=== PATIENT | male | born 1960 | race Two or more races ===

== ENCOUNTER 2018-09-27 19:42 | Emergency (ER) | payer MEDICAID ==
[~2018-09-27] VITALS: Ht 172.7 cm; Wt 78.0 kg
[2018-09-27 19:56] VITALS: BP 142/78
[2018-09-28] MEDS ORDERED: MULT-1234 PO (22:18)
== END 2018-09-28 00:02 | disposition left against medical advice (07) ==
LOC: ER 19:42
DX: R06.02 Shortness of breath (principal); Z53.21 Procedure and treatment not carried out due to patient leaving prior to being seen by health care provider

== ENCOUNTER 2018-09-28 09:22 | Inpatient (IN) | payer MEDICAID ==
[~2018-09-28] VITALS: Ht 177.8 cm; Wt 79.4 kg
[2018-09-28] MEDS ORDERED: METHYLPREDNISOLONE SOD SUCC 125 MG/2 ML VIAL IV STA (09:48)
[2018-09-28] MEDS ORDERED: IPRATROPIUM BROMIDE (0.02%) 0.5MG/2.5ML NEB HHN STA (09:48)
[2018-09-28] MEDS ORDERED: ALBUTEROL (0.083%) 2.5MG/3ML NEB HHN STA (09:48)
[2018-09-28 10:10] LABS: BASOPHILS % 0.5 % (0.0-2.0); EOSINOPHILS % 0.3 % (0.0-5.0); HEMATOCRIT. 37.8 % (42.0-52.0); HEMOGLOBIN. 12.3 g/dL (14.0-18.0); LYMPHOCYTES % 16.5 % (20.0-50.0); MEAN CORPUSCULAR HEMOGLOBIN 28.8 pg (28.0-32.0); MEAN CORPUSCULAR VOLUME 88.6 fL (80.0-94.0); MEAN PLATELET VOLUME 9.4 fl (7.4-10.4); MONOCYTES % 11.6 % (2.0-8.0); NEUTROPHILS % 71.1 % (40.0-76.0); PLATELET 403 x1000/uL (130-400); RED BLOOD CELL COUNT 4.27 mill/uL (4.7-6.1); RED CELL DISTRIBUTION WIDTH 16.3 % (11.6-14.6)
[2018-09-28 10:14] LABS: CHLORIDE 98 mEq/L (98-107)
[2018-09-28] MEDS ORDERED: AMLODIPINE 5MG TABLET PO ONE (10:30)
[2018-09-28] MEDS ORDERED: NITROGLYCERIN OINT 1GM/INCH UDPKT TD ONE (10:30)
[2018-09-28] MEDS ORDERED: FUROSEMIDE 40MG/4ML VIAL IV ONE (10:30)
[2018-09-28] MEDS ORDERED: ASPIRIN 81MG TABLET PO ONE (10:30)
[2018-09-28] MEDS ORDERED: NITROGLYCERIN 0.1MG/HR PATCH TOP ONE (11:45)
[2018-09-28] MEDS ORDERED: MAGNESIUM/ALUMINUM HYDROXIDE/SIMETHICONE 30ML UDC PO PRN (13:30)
[2018-09-28] MEDS ORDERED: ONDANSETRON HCL 4MG/2ML INJ IV PRN (13:30)
[2018-09-28] MEDS ORDERED: CLONIDINE 0.1MG TABLET PO PRN (13:30)
[2018-09-28] MEDS ORDERED: ACETAMINOPHEN 325MG TABLET PO PRN (13:30)
[2018-09-28] MEDS ORDERED: HYDRALAZINE 20MG/ML VIAL IV ONE (13:30)
[2018-09-28] MEDS ORDERED: DOCUSATE SODIUM 100MG CAPSULE PO PRN (13:30)
[2018-09-28] MEDS ORDERED: GUAIFENESIN 200MG/10ML SUGAR FREE UDC PO PRN (13:30)
[2018-09-28] MEDS ORDERED: HYDROCODONE/ACETAMINOPHEN 5/325MG TABLET PO PRN (13:30)
[2018-09-28] MEDS: NIFEDIPINE XL 60MG TAB PO SCH (14:30)
[2018-09-28 14:31] LABS: BG BASE EXCESS 0.3 mmol/L (-2.0-2.0); BG CARBOXYHEMOGLOBIN 1.2 % (0.5-1.5); BG DEOXYHEMOGLOBIN 2.2 % (0.0-5.0); BG FRACTION INSPIRED OXYGEN 28; BG HCO3 ACT 24.9 mmol/L (22.0-26.0); BG METHEMOGLOBIN 0.3 % (0.0-1.5); BG OXYGEN SATURATION 97.8 % (92.0-98.5); BG OXYHEMOGLOBIN 96.3 % (94.0-97.0); BG PCO2 40.1 mmHg (35.0-45.0); BG PH 7.411 (7.350-7.450); BG PO2 105.3 mmHg (75.0-100.0); BG SAMPLE SITE RIGHT BRACHIAL; BG TOTAL HEMOGLOBIN 13.1 g/dL (12.0-18.0); BG VENT MODE NASAL CANNULA
[2018-09-28] MEDS: PANTOPRAZOLE 40MG DR TABLET PO SCH (14:36)
[2018-09-28] MEDS: ENOXAPARIN 40MG/0.4ML SYR SUBCUT SCH (14:40)
[2018-09-28 15:59] LABS: CREATINE KINASE MB FRACTION 3.1 ng/mL (0.5-3.6)
[2018-09-28 20:30] VITALS: BP 154/104
[2018-09-28] MEDS ORDERED: DEXTROSE 50% WATER 50ML SYRINGE IV PRN (20:45)
[2018-09-28 21:14] VITALS: BP 154/104
[2018-09-28] MEDS ORDERED: HYDRALAZINE 20MG/ML VIAL IV PRN (21:32)
[2018-09-28] MEDS: METHYLPREDNISOLONE SOD SUCC 40 MG/ML VIAL IV SCH (21:46)
[2018-09-28] MEDS: FUROSEMIDE 40MG/4ML VIAL IV SCH (21:46)
[2018-09-28] MEDS: BLOOD SUGAR DIAGNOSTIC STRIP TEST SCH (21:47)
[2018-09-28] MEDS: INSULIN LISPRO 100 UNITS/ML SUBCUT SCH (21:50)
[2018-09-28] MEDS ORDERED: MULT-1234 PO (22:18)
[2018-09-28 23:05] LABS: CLARITY URINE CLEAR (CLEAR); COLOR URINE YELLOW (YELLOW); KETONES URINE NEGATIVE (NEGATIVE); LEUKOCYTE ESTERASE URINE NEGATIVE (NEGATIVE); NITRITE URINE NEGATIVE (NEGATIVE); OCCULT BLOOD URINE NEGATIVE (NEGATIVE); PH URINE 5.5 (4.5-8.0); PROTEIN URINE 1+ (NEGATIVE); SPECIFIC GRAVITY URINE 1.009 (1.005-1.030); UROBILINOGEN URINE 0.2 E.U./dL (0.2-1.0)
[2018-09-28 23:15] LABS: *AMPHETAMINES SCREEN URINE NEGATIVE (NEGATIVE); *BARBITURATES SCREEN URINE NEGATIVE (NEGATIVE); *BENZODIAZEPINES SCREEN URINE NEGATIVE (NEGATIVE); *COCAINE SCREEN URINE NEGATIVE (NEGATIVE); CANNABINOID URINE SCREEN NEGATIVE (NEGATIVE); METHADONE URINE SCREEN NEGATIVE (NEGATIVE); OPIATES URINE SCREEN NEGATIVE (NEGATIVE); PHENCYCLIDINE URINE SCREEN NEGATIVE (NEGATIVE)
[2018-09-28] MEDS: BUDESONIDE 0.5MG/2ML NEB HHN SCH (23:50)
[2018-09-28] MEDS: IPRATROPIUM/ALBUTEROL 0.5-3(2.5)MG/3ML NEB INH PRN (23:51)
[2018-09-29] VITALS: BP 134/85
[2018-09-29 04:00] VITALS: BP 125/77
[2018-09-29] MEDS: PANTOPRAZOLE 40MG DR TABLET PO SCH (06:20)
[2018-09-29] MEDS: METHYLPREDNISOLONE SOD SUCC 40 MG/ML VIAL IV SCH ×3 (06:20→21:15)
[2018-09-29] MEDS: BLOOD SUGAR DIAGNOSTIC STRIP TEST SCH ×4 (06:20→21:16)
[2018-09-29] MEDS: INSULIN LISPRO 100 UNITS/ML SUBCUT SCH ×4 (06:22→21:00)
[2018-09-29 07:06] LABS: BASOPHILS % 0.1 % (0.0-2.0); HEMATOCRIT. 35.4 % (42.0-52.0); HEMOGLOBIN. 11.6 g/dL (14.0-18.0); LYMPHOCYTES % 7.6 % (20.0-50.0); MEAN CORPUSCULAR VOLUME 88.8 fL (80.0-94.0); MEAN PLATELET VOLUME 9.4 fl (7.4-10.4); NEUTROPHILS % 80.3 % (40.0-76.0); PLATELET 373 x1000/uL (130-400); RED BLOOD CELL COUNT 3.98 mill/uL (4.7-6.1); RED CELL DISTRIBUTION WIDTH 16.3 % (11.6-14.6)
[2018-09-29 08:00] VITALS: BP 156/112
[2018-09-29] MEDS: FUROSEMIDE 40MG/4ML VIAL IV SCH ×2 (09:13→21:15)
[2018-09-29] MEDS: NIFEDIPINE XL 60MG TAB PO SCH (09:14)
[2018-09-29] MEDS: ENOXAPARIN 40MG/0.4ML SYR SUBCUT SCH (09:15)
[2018-09-29] MEDS: BUDESONIDE 0.5MG/2ML NEB HHN SCH ×2 (10:14→20:19)
[2018-09-29] MEDS: POTASSIUM CHLORIDE 20MEQ TABLET SR PO SCH (11:20)
[2018-09-29 12:00] VITALS: BP 143/100
[2018-09-29] MEDS: CLONIDINE 0.2MG TABLET PO SCH ×2 (14:32→21:17)
[2018-09-29 16:00] VITALS: BP 131/91
[2018-09-29 20:00] VITALS: BP 135/94
[2018-09-29] MEDS: CARVEDILOL 6.25 MG TABLET PO SCH (21:16)
[2018-09-30] VITALS: BP 129/88
[2018-09-30 04:00] VITALS: BP 130/92
[2018-09-30] MEDS: INSULIN LISPRO 100 UNITS/ML SUBCUT SCH ×4 (05:54→21:00)
[2018-09-30] MEDS: BLOOD SUGAR DIAGNOSTIC STRIP TEST SCH ×4 (05:54→21:00)
[2018-09-30] MEDS: PANTOPRAZOLE 40MG DR TABLET PO SCH (05:54)
[2018-09-30] MEDS: METHYLPREDNISOLONE SOD SUCC 40 MG/ML VIAL IV SCH ×2 (05:54→13:20)
[2018-09-30] MEDS: CLONIDINE 0.2MG TABLET PO SCH ×3 (05:54→23:49)
[2018-09-30 06:42] LABS: HEMATOCRIT. 32.9 % (42.0-52.0); HEMOGLOBIN. 10.7 g/dL (14.0-18.0); MEAN CORPUSCULAR HEMOGLOBIN 28.9 pg (28.0-32.0); MEAN CORPUSCULAR VOLUME 88.8 fL (80.0-94.0); MEAN PLATELET VOLUME 9.3 fl (7.4-10.4); PLATELET 384 x1000/uL (130-400); RED BLOOD CELL COUNT 3.71 mill/uL (4.7-6.1)
[2018-09-30 08:00] VITALS: BP 135/85
[2018-09-30] MEDS: BUDESONIDE 0.5MG/2ML NEB HHN SCH (08:36)
[2018-09-30] MEDS: IPRATROPIUM/ALBUTEROL 0.5-3(2.5)MG/3ML NEB INH PRN (08:36)
[2018-09-30] MEDS: FUROSEMIDE 40MG/4ML VIAL IV SCH ×2 (09:28→22:09)
[2018-09-30] MEDS: ENOXAPARIN 40MG/0.4ML SYR SUBCUT SCH (09:28)
[2018-09-30] MEDS: POTASSIUM CHLORIDE 20MEQ TABLET SR PO SCH (09:29)
[2018-09-30] MEDS: NIFEDIPINE XL 60MG TAB PO SCH (09:29)
[2018-09-30] MEDS: CARVEDILOL 6.25 MG TABLET PO SCH ×2 (09:30→22:09)
[2018-09-30 10:18] LABS: PLATELET ESTIMATE NORMAL
[2018-09-30 12:00] VITALS: BP 128/64
[2018-09-30] MEDS: LISINOPRIL 5MG TABLET PO SCH (14:11)
[2018-09-30 16:00] VITALS: BP 120/85
[2018-09-30 20:00] VITALS: BP 113/79
[2018-09-30] MEDS ORDERED: BUDESONIDE 0.5MG/2ML NEB HHN SCH (21:00)
[2018-10-01] VITALS: BP 121/87
[2018-10-01 04:00] VITALS: BP 111/73
[2018-10-01] MEDS: PANTOPRAZOLE 40MG DR TABLET PO SCH (07:02)
[2018-10-01] MEDS: INSULIN LISPRO 100 UNITS/ML SUBCUT SCH ×2 (07:03→12:15)
[2018-10-01] MEDS: BLOOD SUGAR DIAGNOSTIC STRIP TEST SCH ×2 (07:03→11:45)
[2018-10-01] MEDS: CLONIDINE 0.2MG TABLET PO SCH ×2 (07:03→14:00)
[2018-10-01] MEDS: IPRATROPIUM/ALBUTEROL 0.5-3(2.5)MG/3ML NEB INH PRN (07:37)
[2018-10-01 08:00] VITALS: BP 122/86
[2018-10-01] MEDS ORDERED: METHYLPREDNISOLONE SOD SUCC 40 MG/ML VIAL IV SCH (09:00)
[2018-10-01] MEDS: ENOXAPARIN 40MG/0.4ML SYR SUBCUT SCH ×2 (09:00→09:33)
[2018-10-01] MEDS: POTASSIUM CHLORIDE 20MEQ TABLET SR PO SCH (09:31)
[2018-10-01] MEDS: CARVEDILOL 6.25 MG TABLET PO SCH (09:31)
[2018-10-01] MEDS: LISINOPRIL 5MG TABLET PO SCH (09:32)
[2018-10-01] MEDS: NIFEDIPINE XL 60MG TAB PO SCH (09:32)
[2018-10-01] MEDS: FUROSEMIDE 40MG/4ML VIAL IV SCH (10:20)
[2018-10-01 10:37] LABS: BASOPHILS % 0.2 % (0.0-2.0); HEMATOCRIT. 35.4 % (42.0-52.0); HEMOGLOBIN. 11.5 g/dL (14.0-18.0); LYMPHOCYTES % 12.4 % (20.0-50.0); MEAN CORPUSCULAR HEMOGLOBIN 28.9 pg (28.0-32.0); MEAN CORPUSCULAR VOLUME 88.9 fL (80.0-94.0); MEAN PLATELET VOLUME 9.3 fl (7.4-10.4); MONOCYTES % 12.5 % (2.0-8.0); NEUTROPHILS % 74.9 % (40.0-76.0); PLATELET 345 x1000/uL (130-400); RED BLOOD CELL COUNT 3.98 mill/uL (4.7-6.1)
[2018-10-01 12:00] VITALS: BP 133/94
[2018-10-01 13:35] VITALS: BP 133/94
== END 2018-10-01 15:55 | disposition home or self-care (01) | DRG 133 ==
LOC: ER 10:05 → 5WST 10:57 → EDBEDREQTM 11:03 → EDBEDREQ 11:03 → EDBEDREQSVC 11:03 → ENRESERV 18:50
PROVIDERS: ADMIT Internal Medicine; ATTEND Internal Medicine
DX: J96.00 Acute respiratory failure, unspecified whether with hypoxia or hypercapnia (principal); I50.43 Acute on chronic combined systolic (congestive) and diastolic (congestive) heart failure; N17.9 Acute kidney failure, unspecified; I27.20 Pulmonary hypertension, unspecified; E87.1 Hypo-osmolality and hyponatremia; E44.1 Mild protein-calorie malnutrition; I42.9 Cardiomyopathy, unspecified; I11.0 Hypertensive heart disease with heart failure; J44.9 Chronic obstructive pulmonary disease, unspecified; D64.9 Anemia, unspecified; E78.5 Hyperlipidemia, unspecified; R73.9 Hyperglycemia, unspecified; Z87.891 Personal history of nicotine dependence; Z68.25 Body mass index [BMI] 25.0-25.9, adult
CPT/HCPCS: 36415; 36600; 71045; 80048; 80061; 80305; 82375; 82550; 82553; 82805; 82962; 83036; 83735; 83880; 84443; 84484; 87070; 93005; 93306; 93970; 94618; 94640; 96374; 96375; 97162; 99291; J0360; J1650; J1815; J1940; J2920; J2930; J7611; J7620; J7626

== ENCOUNTER 2019-06-01 12:27 | Inpatient (IN) | payer MEDICAID ==
[~2019-06-01] VITALS: Ht 177.8 cm; Wt 94.1 kg
[~2019-06-01 12:27] MED LIST: MULT-1234 PO
[2019-06-01] MEDS ORDERED: ALBUTEROL (0.083%) 2.5MG/3ML NEB HHN STA (14:25)
[2019-06-01 15:03] LABS: CHLORIDE 91 mEq/L (98-107)
[2019-06-01 15:05] LABS: ETHANOL BLOOD < 10 mg/dL
[2019-06-01 15:13] LABS: BASOPHILS % 0.2 % (0.0-2.0); HEMATOCRIT. 36.9 % (42.0-52.0); HEMOGLOBIN. 12.2 g/dL (14.0-18.0); LYMPHOCYTES % 11.4 % (20.0-50.0); MEAN CORPUSCULAR HEMOGLOBIN 29.5 pg (28.0-32.0); MEAN CORPUSCULAR VOLUME 89.4 fL (80.0-94.0); MEAN PLATELET VOLUME 9.6 fl (7.4-10.4); MONOCYTES % 13.1 % (2.0-8.0); NEUTROPHILS % 75.3 % (40.0-76.0); PLATELET 321 x1000/uL (130-400); RED BLOOD CELL COUNT 4.12 mill/uL (4.7-6.1); RED CELL DISTRIBUTION WIDTH 17.9 % (11.6-14.6)
[2019-06-01] MEDS ORDERED: ASPIRIN 81MG TABLET PO ONE (15:45)
[2019-06-01] MEDS ORDERED: NITROGLYCERIN 0.4MG TABLET SL SL PRN (15:45)
[2019-06-01] MEDS ORDERED: FUROSEMIDE 40MG/4ML VIAL IV ONE (15:45)
[2019-06-01] MEDS ORDERED: GUAIFENESIN 200MG/10ML SUGAR FREE UDC PO PRN (19:00)
[2019-06-01] MEDS ORDERED: LORAZEPAM 0.5MG TABLET PO PRN (19:00)
[2019-06-01] MEDS ORDERED: ONDANSETRON HCL 4MG/2ML INJ IV PRN (19:00)
[2019-06-01] MEDS ORDERED: DOCUSATE SODIUM 100MG CAPSULE PO PRN (19:00)
[2019-06-01] MEDS ORDERED: IPRATROPIUM/ALBUTEROL 0.5-3(2.5)MG/3ML NEB HHN PRN (19:00)
[2019-06-01] MEDS ORDERED: HYDROCODONE/ACETAMINOPHEN 5/325MG TABLET PO PRN (19:00)
[2019-06-01] MEDS ORDERED: ACETAMINOPHEN 325MG TABLET PO PRN (19:00)
[2019-06-01] MEDS: CLONIDINE 0.1MG TABLET PO PRN (20:15)
[2019-06-01 20:25] LABS: HEPATITIS B SURFACE ANTIGEN NEGATIVE
[2019-06-01 20:55] LABS: HEPATITIS A AB IGM NEGATIVE (NEGATIVE)
[2019-06-01] MEDS ORDERED: HYDRALAZINE 20MG/ML VIAL IV PRN (21:00)
[2019-06-01] MEDS: HYDRALAZINE 20MG/ML VIAL IV PRN (23:12)
[2019-06-01 23:27] LABS: BG BASE EXCESS -4.7 mmol/L (-2.0-2.0); BG CARBOXYHEMOGLOBIN 1.1 % (0.5-1.5); BG DEOXYHEMOGLOBIN 7.1 % (0.0-5.0); BG FRACTION INSPIRED OXYGEN 32; BG HCO3 ACT 19.9 mmol/L (22.0-26.0); BG METHEMOGLOBIN 0.3 % (0.0-1.5); BG OXYGEN SATURATION 92.8 % (92.0-98.5); BG OXYHEMOGLOBIN 91.5 % (94.0-97.0); BG PCO2 35.3 mmHg (35.0-45.0); BG PH 7.368 (7.350-7.450); BG PO2 74.7 mmHg (75.0-100.0); BG SAMPLE SITE RIGHT RADIAL; BG TOTAL HEMOGLOBIN 12.6 g/dL (12.0-18.0); BG VENT MODE NASAL CANNULA
[2019-06-02] VITALS (9 sets, daily range): BP systolic 135–187; BP diastolic 86–133
[2019-06-02] MEDS: CLONIDINE 0.1MG TABLET PO PRN ×3 (05:58→22:58)
[2019-06-02] MEDS: HYDRALAZINE 20MG/ML VIAL IV PRN ×2 (07:20→18:48)
[2019-06-02] MEDS: FUROSEMIDE 40MG/4ML VIAL IV SCH ×2 (09:12→18:47)
[2019-06-02] MEDS: AMLODIPINE 5MG TABLET PO SCH ×3 (09:30→10:18)
[2019-06-02 10:26] LABS: HEMATOCRIT. 36.5 % (42.0-52.0); HEMOGLOBIN. 11.9 g/dL (14.0-18.0); MEAN CORPUSCULAR HEMOGLOBIN 29.3 pg (28.0-32.0); MEAN CORPUSCULAR VOLUME 89.6 fL (80.0-94.0); MEAN PLATELET VOLUME 9.3 fl (7.4-10.4); PLATELET 294 x1000/uL (130-400); RED BLOOD CELL COUNT 4.07 mill/uL (4.7-6.1); RED CELL DISTRIBUTION WIDTH 17.5 % (11.6-14.6)
[2019-06-02 12:28] LABS: NUCLEATED RED BLOOD CELLS 3 /100 WBC
[2019-06-02 12:29] LABS: PLATELET ESTIMATE NORMAL
[2019-06-02] MEDS ORDERED: PNEUMOCOCCAL 23-VAL P-SAC VAC 0.5 ML IM ONE (16:00)
[2019-06-02] MEDS ORDERED: INFLUENZA VIRUS VACCINE(AFLURIA) 0.5ML SYR IM ONE (16:00)
[2019-06-02] MEDS ORDERED: GUAIFENESIN 200MG/10ML SUGAR FREE UDC PO PRN (18:15)
[2019-06-02] MEDS ORDERED: AZITHROMYCIN 500 MG in DEXT 5% WATER 250 ML IV SCH (21:00)
[2019-06-02 21:13] LABS: FOLIC ACID (FOLATE) SERUM > 20.00 ng/mL (>5.38); VITAMIN B12 SERUM > 2000.0 pg/mL (211-911)
[2019-06-02 21:46] LABS: FERRITIN 125 ng/mL (22-322)
[2019-06-02] MEDS: METHYLPREDNISOLONE SOD SUCC 125 MG/2 ML VIAL IV SCH (22:34)
[2019-06-03] VITALS (13 sets, daily range): BP systolic 139–190; BP diastolic 89–115
[2019-06-03] MEDS: HYDRALAZINE 20MG/ML VIAL IV PRN ×2 (01:28→18:29)
[2019-06-03 02:31] LABS: CREATINE KINASE MB FRACTION 4.4 ng/mL (0.5-3.6)
[2019-06-03] MEDS: AZITHROMYCIN 500 MG in DEXT 5% WATER 250 ML IV SCH (02:40)
[2019-06-03] MEDS: METHYLPREDNISOLONE SOD SUCC 125 MG/2 ML VIAL IV SCH ×3 (06:15→21:22)
[2019-06-03 07:34] LABS: HEMATOCRIT. 32.9 % (42.0-52.0); HEMOGLOBIN. 10.7 g/dL (14.0-18.0); MEAN CORPUSCULAR HEMOGLOBIN 29.3 pg (28.0-32.0); MEAN CORPUSCULAR VOLUME 89.8 fL (80.0-94.0); MEAN PLATELET VOLUME 9.2 fl (7.4-10.4); PLATELET 304 x1000/uL (130-400); RED BLOOD CELL COUNT 3.67 mill/uL (4.7-6.1); RED CELL DISTRIBUTION WIDTH 17.7 % (11.6-14.6)
[2019-06-03 08:07] LABS: HIV SCREEN 4G Non Reactive (Non Reactive)
[2019-06-03] MEDS: AMLODIPINE 5MG TABLET PO SCH (08:36)
[2019-06-03] MEDS: FUROSEMIDE 40MG/4ML VIAL IV SCH (08:36)
[2019-06-03] MEDS: CLONIDINE 0.1MG TABLET PO PRN ×2 (10:31→14:31)
[2019-06-03 13:54] LABS: NUCLEATED RED BLOOD CELLS 3 /100 WBC
[2019-06-03 13:55] LABS: PLATELET ESTIMATE NORMAL
[2019-06-03] MEDS ORDERED: BENZONATATE 100MG CAPSULE PO PRN (14:45)
[2019-06-03] MEDS ORDERED: NIFEDIPINE XL 30MG TAB PO SCH (15:00)
[2019-06-03] MEDS: FERROUS SULFATE 325MG TABLET PO SCH (17:49)
[2019-06-03] MEDS: FUROSEMIDE 40MG/4ML VIAL IVP SCH (17:49)
[2019-06-03] MEDS: POTASSIUM CHLORIDE 20MEQ TABLET SR PO SCH (17:49)
[2019-06-03] MEDS: IPRATROPIUM/ALBUTEROL 0.5-3(2.5)MG/3ML NEB HHN SCH (21:10)
[2019-06-03] MEDS: LOSARTAN POTASSIUM 25 MG TABLET PO SCH (21:21)
[2019-06-03] MEDS: NIFEDIPINE XL 30MG TAB PO SCH (22:47)
[2019-06-04] VITALS: BP 138/89
[2019-06-04] MEDS: IPRATROPIUM/ALBUTEROL 0.5-3(2.5)MG/3ML NEB HHN SCH ×3 (00:46→08:34)
[2019-06-04 02:00] VITALS: BP 133/80
[2019-06-04] MEDS: AZITHROMYCIN 500 MG in DEXT 5% WATER 250 ML IV SCH (02:53)
[2019-06-04 04:00] VITALS: BP 109/70
[2019-06-04 06:00] VITALS: BP 126/77
[2019-06-04] MEDS: FUROSEMIDE 40MG/4ML VIAL IVP SCH (06:36)
[2019-06-04] MEDS: METHYLPREDNISOLONE SOD SUCC 125 MG/2 ML VIAL IV SCH (06:37)
[2019-06-04 07:12] LABS: CREATINE KINASE MB FRACTION 2.2 ng/mL (0.5-3.6)
[2019-06-04 08:00] VITALS: BP 133/84
[2019-06-04] MEDS: FERROUS SULFATE 325MG TABLET PO SCH (08:49)
[2019-06-04] MEDS: POTASSIUM CHLORIDE 20MEQ TABLET SR PO SCH (08:50)
[2019-06-04] MEDS: LOSARTAN POTASSIUM 25 MG TABLET PO SCH (08:50)
[2019-06-04] MEDS: NIFEDIPINE XL 30MG TAB PO SCH (08:52)
[2019-06-04] MEDS ORDERED: FUROSEMIDE 40MG TABLET PO SCH (09:00)
[2019-06-04 09:45] VITALS: BP 159/71
== END 2019-06-04 10:00 | disposition left against medical advice (07) | DRG 194 ==
LOC: ER 12:42 → EDBEDREQ 16:11 → CANRESERV 20:16 → ENRESERV 20:16 → EDBEDREQSVC 20:27 → EDBEDREQTM 20:27 → 5EST 20:37 → ENRESERV 06-02 07:36
PROVIDERS: ADMIT Internal Medicine; ATTEND Internal Medicine
DX: I13.0 Hypertensive heart and chronic kidney disease with heart failure and stage 1 through stage 4 chronic kidney disease, or unspecified chronic kidney disease (principal); J96.01 Acute respiratory failure with hypoxia; N17.9 Acute kidney failure, unspecified; E46 Unspecified protein-calorie malnutrition; N18.3 Chronic kidney disease, stage 3 (moderate); E87.1 Hypo-osmolality and hyponatremia; E11.22 Type 2 diabetes mellitus with diabetic chronic kidney disease; E11.65 Type 2 diabetes mellitus with hyperglycemia; B17.10 Acute hepatitis C without hepatic coma; I50.43 Acute on chronic combined systolic (congestive) and diastolic (congestive) heart failure; I27.20 Pulmonary hypertension, unspecified; I42.9 Cardiomyopathy, unspecified; J44.1 Chronic obstructive pulmonary disease with (acute) exacerbation; I45.10 Unspecified right bundle-branch block; D72.821 Monocytosis (symptomatic); D64.9 Anemia, unspecified; B18.2 Chronic viral hepatitis C; F10.20 Alcohol dependence, uncomplicated; F17.210 Nicotine dependence, cigarettes, uncomplicated; I42.0 Dilated cardiomyopathy; Z79.899 Other long term (current) drug therapy; Z68.29 Body mass index [BMI] 29.0-29.9, adult
CPT/HCPCS: 36415; 36600; 71045; 76700; 80048; 80053; 80061; 80076; 80320; 82140; 82248; 82375; 82550; 82553; 82607; 82728; 82746; 82805; 82977; 83036; 83540; 83550; 83880; 83930; 83937; 84295; 84443; 84484; 85025; 85379; 86705; 86709; 86803; 87340; 87389; 93005; 94640; 96374; 99285; J0360; J0456; J1940; J2930; J7060; J7611; J7620; G0480

== ENCOUNTER 2019-06-13 10:42 | Inpatient (IN) | payer MEDICAID ==
[2019-06-13] VITALS (25 sets, daily range): BP systolic 151–200; BP diastolic 100–179
[~2019-06-13] VITALS: Ht 208.3 cm; Wt 81.7 kg
[2019-06-13] MEDS ORDERED: NITROGLYCERIN 0.4MG TABLET SL SL PRN (11:15)
[2019-06-13] MEDS ORDERED: FUROSEMIDE 40MG/4ML VIAL IVP ONE (11:15)
[2019-06-13] MEDS ORDERED: NITROGLYCERIN OINT 1GM/INCH UDPKT TD ONE (11:15)
[2019-06-13] MEDS ORDERED: ASPIRIN 81MG TABLET PO ONE (11:15)
[2019-06-13 11:23] LABS: BASOPHILS % 0.7 % (0.0-2.0); CHLORIDE 108 mEq/L (98-107); EOSINOPHILS % 0.7 % (0.0-5.0); HEMATOCRIT. 37.6 % (42.0-52.0); LYMPHOCYTES % 22.3 % (20.0-50.0); MEAN CORPUSCULAR HEMOGLOBIN 28.9 pg (28.0-32.0); MEAN CORPUSCULAR VOLUME 90.3 fL (80.0-94.0); MEAN PLATELET VOLUME 9.2 fl (7.4-10.4); MONOCYTES % 14.7 % (2.0-8.0); NEUTROPHILS % 61.6 % (40.0-76.0); PLATELET 256 x1000/uL (130-400); RED BLOOD CELL COUNT 4.16 mill/uL (4.7-6.1); RED CELL DISTRIBUTION WIDTH 17.8 % (11.6-14.6)
[2019-06-13] MEDS ORDERED: NITROGLYCERIN 50MG PREMIX 250 ML IV ONE (13:00)
[2019-06-13] MEDS ORDERED: HYDRALAZINE HCL 100MG TABLET PO ONE (13:45)
[2019-06-13 14:30] LABS: *AMPHETAMINES SCREEN URINE NEGATIVE (NEGATIVE); *BARBITURATES SCREEN URINE NEGATIVE (NEGATIVE); *BENZODIAZEPINES SCREEN URINE NEGATIVE (NEGATIVE); *COCAINE SCREEN URINE NEGATIVE (NEGATIVE); METHADONE URINE SCREEN NEGATIVE (NEGATIVE)
[2019-06-13] MEDS ORDERED: ENOXAPARIN 40MG/0.4ML SYR SUBCUT SCH (14:30)
[2019-06-13] MEDS ORDERED: GUAIFENESIN 200MG/10ML SUGAR FREE UDC PO PRN (14:30)
[2019-06-13] MEDS ORDERED: ONDANSETRON HCL 4MG/2ML INJ IV PRN (14:30)
[2019-06-13] MEDS ORDERED: DIPHENHYDRAMINE 50MG/ML VIAL IV PRN (14:30)
[2019-06-13] MEDS ORDERED: IPRATROPIUM/ALBUTEROL 0.5-3(2.5)MG/3ML NEB HHN PRN (14:30)
[2019-06-13] MEDS ORDERED: ACETAMINOPHEN 325MG TABLET PO PRN (14:30)
[2019-06-13 14:31] LABS: CANNABINOID URINE SCREEN NEGATIVE (NEGATIVE); OPIATES URINE SCREEN NEGATIVE (NEGATIVE); PHENCYCLIDINE URINE SCREEN NEGATIVE (NEGATIVE)
[2019-06-13 16:42] LABS: PHOSPHORUS 3.7 mg/dL (2.5-4.9)
[2019-06-13] MEDS ORDERED: FUROSEMIDE 40MG/4ML VIAL IVP SCH (17:00)
[2019-06-13] MEDS ORDERED: AMLODIPINE 5MG TABLET PO NR (17:15)
[2019-06-13] MEDS ORDERED: FUROSEMIDE 100MG/10ML VIAL IVP NR (17:15)
[2019-06-13] MEDS ORDERED: LORAZEPAM 2MG/ML CPJ IV PRN (19:00)
[2019-06-13] MEDS: ENOXAPARIN 40MG/0.4ML SYR SUBCUT SCH (19:33)
[2019-06-13] MEDS: CLONIDINE 0.1MG TABLET PO PRN (19:35)
[2019-06-13] MEDS: NITROGLYCERIN 50MG PREMIX 250 ML IV PRN (23:49)
[2019-06-14] VITALS (81 sets, daily range): BP systolic 120–205; BP diastolic 62–132
[2019-06-14] MEDS: NITROGLYCERIN 50MG PREMIX 250 ML IV PRN ×5 (04:12→21:41)
[2019-06-14] MEDS: FUROSEMIDE 100MG/10ML VIAL IVP SCH ×2 (06:33→16:26)
[2019-06-14] MEDS: CLONIDINE 0.1MG TABLET PO SCH ×4 (06:34→23:59)
[2019-06-14 06:38] LABS: BASOPHILS % 1.1 % (0.0-2.0); EOSINOPHILS % 1.5 % (0.0-5.0); HEMATOCRIT. 30.3 % (42.0-52.0); HEMOGLOBIN. 9.9 g/dL (14.0-18.0); LYMPHOCYTES % 18.3 % (20.0-50.0); MEAN CORPUSCULAR HEMOGLOBIN 29.4 pg (28.0-32.0); MEAN CORPUSCULAR VOLUME 89.6 fL (80.0-94.0); MEAN PLATELET VOLUME 9.4 fl (7.4-10.4); MONOCYTES % 13.9 % (2.0-8.0); NEUTROPHILS % 65.2 % (40.0-76.0); PLATELET 227 x1000/uL (130-400); RED BLOOD CELL COUNT 3.38 mill/uL (4.7-6.1); RED CELL DISTRIBUTION WIDTH 17.5 % (11.6-14.6)
[2019-06-14 06:46] LABS: CHLORIDE 107 mEq/L (98-107)
[2019-06-14 06:57] LABS: LDL CHOLESTEROL 70 mg/dL (5-100)
[2019-06-14 06:58] LABS: HDL CHOLESTEROL 30 mg/dL (40-59)
[2019-06-14] MEDS: MAGNESIUM OXIDE 400MG TABLET PO SCH (08:37)
[2019-06-14] MEDS ORDERED: AMLODIPINE 5MG TABLET PO SCH (09:00)
[2019-06-14 09:03] LABS: CREATINE KINASE 59 IU/L (39-308)
[2019-06-14 13:08] LABS: CLARITY URINE CLEAR (CLEAR); COLOR URINE YELLOW (YELLOW); KETONES URINE NEGATIVE (NEGATIVE); LEUKOCYTE ESTERASE URINE NEGATIVE (NEGATIVE); NITRITE URINE NEGATIVE (NEGATIVE); OCCULT BLOOD URINE NEGATIVE (NEGATIVE); PROTEIN URINE NEGATIVE (NEGATIVE); SPECIFIC GRAVITY URINE 1.006 (1.005-1.030)
[2019-06-14] MEDS: AMLODIPINE 5MG TABLET PO SCH (20:07)
[2019-06-14] MEDS: ENOXAPARIN 40MG/0.4ML SYR SUBCUT SCH (20:07)
[2019-06-15] VITALS (60 sets, daily range): BP systolic 58–155; BP diastolic 13–112
[2019-06-15] MEDS: NITROGLYCERIN 50MG PREMIX 250 ML IV PRN (02:47)
[2019-06-15] MEDS: CLONIDINE 0.1MG TABLET PO PRN ×2 (04:21→15:07)
[2019-06-15] MEDS: CLONIDINE 0.1MG TABLET PO SCH ×3 (06:00→17:40)
[2019-06-15] MEDS: AMLODIPINE 5MG TABLET PO SCH ×2 (07:37→20:56)
[2019-06-15] MEDS: NITROGLYCERIN OINT 1GM/INCH UDPKT TD SCH ×3 (07:37→17:40)
[2019-06-15] MEDS: MAGNESIUM OXIDE 400MG TABLET PO SCH (08:37)
[2019-06-15] MEDS: FUROSEMIDE 40MG TABLET PO SCH ×2 (08:37→20:56)
[2019-06-15 09:25] LABS: HEMATOCRIT. 31.7 % (42.0-52.0); HEMOGLOBIN. 10.4 g/dL (14.0-18.0); MEAN CORPUSCULAR HEMOGLOBIN 29.4 pg (28.0-32.0); MEAN CORPUSCULAR VOLUME 89.4 fL (80.0-94.0); MEAN PLATELET VOLUME 9.9 fl (7.4-10.4); PLATELET 244 x1000/uL (130-400); RED BLOOD CELL COUNT 3.54 mill/uL (4.7-6.1); RED CELL DISTRIBUTION WIDTH 17.6 % (11.6-14.6)
[2019-06-15 09:30] LABS: CHLORIDE 105 mEq/L (98-107)
[2019-06-15 11:07] LABS: PLATELET ESTIMATE NORMAL
[2019-06-15] MEDS: POLYETHYLENE GLYCOL 3350 (17GM) 1 DOSE PACK PO SCH (13:08)
[2019-06-15] MEDS: ENOXAPARIN 40MG/0.4ML SYR SUBCUT SCH (20:56)
[2019-06-16] VITALS (13 sets, daily range): BP systolic 127–145; BP diastolic 77–113
[2019-06-16] MEDS: NITROGLYCERIN OINT 1GM/INCH UDPKT TD SCH ×3 (00:04→12:00)
[2019-06-16] MEDS: CLONIDINE 0.1MG TABLET PO SCH ×3 (00:04→12:00)
[2019-06-16 05:49] LABS: BASOPHILS % 1.6 % (0.0-2.0); EOSINOPHILS % 5.1 % (0.0-5.0); LYMPHOCYTES % 26.8 % (20.0-50.0); MEAN CORPUSCULAR VOLUME 89.1 fL (80.0-94.0); MEAN PLATELET VOLUME 9.4 fl (7.4-10.4); MONOCYTES % 13.5 % (2.0-8.0); PLATELET 287 x1000/uL (130-400); RED BLOOD CELL COUNT 3.81 mill/uL (4.7-6.1); RED CELL DISTRIBUTION WIDTH 17.9 % (11.6-14.6)
[2019-06-16] MEDS: FUROSEMIDE 40MG TABLET PO SCH (08:15)
[2019-06-16] MEDS: AMLODIPINE 5MG TABLET PO SCH (08:15)
[2019-06-16] MEDS: MAGNESIUM OXIDE 400MG TABLET PO SCH (08:15)
[2019-06-16] MEDS: POLYETHYLENE GLYCOL 3350 (17GM) 1 DOSE PACK PO SCH (08:16)
[2019-06-16 08:23] LABS: PHOSPHORUS 3.6 mg/dL (2.5-4.9)
[2019-06-16] MEDS ORDERED: POTASSIUM CHLORIDE 20MEQ TABLET SR PO SCH (09:00)
[2019-06-16] MEDS: CLONIDINE 0.1MG TABLET PO PRN (10:21)
== END 2019-06-16 13:15 | disposition left against medical advice (07) | DRG 133 ==
LOC: ER 10:42 → CVICU 13:05 → EDBEDREQ 13:08 → EDBEDREQTM 13:08 → EDBEDREQSVC 13:08 → ENRESERV 17:10 → EDBEDREQSVC 17:15
PROVIDERS: ADMIT Internal Medicine; ATTEND Internal Medicine
DX: J96.00 Acute respiratory failure, unspecified whether with hypoxia or hypercapnia (principal); I50.43 Acute on chronic combined systolic (congestive) and diastolic (congestive) heart failure; N17.9 Acute kidney failure, unspecified; I27.20 Pulmonary hypertension, unspecified; I31.3 Pericardial effusion (noninflammatory); D50.9 Iron deficiency anemia, unspecified; F10.20 Alcohol dependence, uncomplicated; I13.0 Hypertensive heart and chronic kidney disease with heart failure and stage 1 through stage 4 chronic kidney disease, or unspecified chronic kidney disease; I42.0 Dilated cardiomyopathy; B19.20 Unspecified viral hepatitis C without hepatic coma; D63.8 Anemia in other chronic diseases classified elsewhere; I16.1 Hypertensive emergency; E80.6 Other disorders of bilirubin metabolism; I16.9 Hypertensive crisis, unspecified; F17.210 Nicotine dependence, cigarettes, uncomplicated; I45.10 Unspecified right bundle-branch block; J44.9 Chronic obstructive pulmonary disease, unspecified; N18.9 Chronic kidney disease, unspecified; Z59.0 Homelessness; Z79.899 Other long term (current) drug therapy; Z82.49 Family history of ischemic heart disease and other diseases of the circulatory system; Z91.19 Patient's noncompliance with other medical treatment and regimen
CPT/HCPCS: 36415; 71045; 76770; 78580; 80048; 80053; 80061; 80305; 81003; 82550; 83735; 83880; 84100; 84443; 84484; 85025; 85379; 93005; 93306; 93970; 99291; J1650; J1940; J3490

== ENCOUNTER 2019-07-05 16:06 | Inpatient (IN) | payer MEDICAID ==
[~2019-07-05] VITALS: Ht 177.8 cm; Wt 79.8 kg
[2019-07-05] MEDS ORDERED: ASPIRIN 81MG TABLET PO ONE (16:30)
[2019-07-05] MEDS ORDERED: FUROSEMIDE 40MG/4ML VIAL IV ONE (16:30)
[2019-07-05] MEDS ORDERED: NITROGLYCERIN OINT 1GM/INCH UDPKT TD ONE (16:30)
[2019-07-05] MEDS ORDERED: HYDRALAZINE 20MG/ML VIAL IV ONE (16:30)
[2019-07-05 16:40] LABS: BG BASE EXCESS -10.1 mmol/L (-2.0-2.0); BG BILEVEL POS AIRWAY PRESSURE 18/5; BG CARBOXYHEMOGLOBIN 0.1 % (0.5-1.5); BG DEOXYHEMOGLOBIN 0.3 % (0.0-5.0); BG FRACTION INSPIRED OXYGEN 75; BG HCO3 ACT 12.9 mmol/L (22.0-26.0); BG METHEMOGLOBIN 0.2 % (0.0-1.5); BG OXYGEN SATURATION 99.7 % (92.0-98.5); BG OXYHEMOGLOBIN 99.4 % (94.0-97.0); BG PCO2 21.6 mmHg (35.0-45.0); BG PH 7.393 (7.350-7.450); BG SAMPLE SITE RIGHT RADIAL; BG VENT MODE MASK - BIPAP; BG VENT RATE 20 set
[2019-07-05 17:01] LABS: CHLORIDE 99 mEq/L (98-107); HEMATOCRIT. 37.3 % (42.0-52.0); HEMOGLOBIN. 12.3 g/dL (14.0-18.0); MEAN CORPUSCULAR HEMOGLOBIN 28.3 pg (28.0-32.0); MEAN CORPUSCULAR VOLUME 86.2 fL (80.0-94.0); MEAN PLATELET VOLUME 9.9 fl (7.4-10.4); PLATELET 386 x1000/uL (130-400); RED BLOOD CELL COUNT 4.33 mill/uL (4.7-6.1); RED CELL DISTRIBUTION WIDTH 18.3 % (11.6-14.6)
[2019-07-05 17:04] LABS: INR 1.4; PARTIAL THROMBOPLASTIN TIME 25.1 sec (23.4-31.0); PROTHROMBIN TIME 14.2 sec (9.6-11.0)
[2019-07-05] MEDS ORDERED: HYDRALAZINE 20MG/ML VIAL IV PRN (17:45)
[2019-07-05] MEDS: NITROGLYCERIN OINT 1GM/INCH UDPKT TD SCH (18:00)
[2019-07-05] MEDS ORDERED: AMLODIPINE 5MG TABLET PO NR (18:00)
[2019-07-05] MEDS ORDERED: ENOXAPARIN 80MG/0.8ML SYR SUBCUT NR (19:00)
[2019-07-05 19:12] LABS: *AMPHETAMINES SCREEN URINE NEGATIVE (NEGATIVE); *BARBITURATES SCREEN URINE NEGATIVE (NEGATIVE); *BENZODIAZEPINES SCREEN URINE NEGATIVE (NEGATIVE); *COCAINE SCREEN URINE NEGATIVE (NEGATIVE); METHADONE URINE SCREEN NEGATIVE (NEGATIVE); OPIATES URINE SCREEN NEGATIVE (NEGATIVE)
[2019-07-05 19:13] LABS: CANNABINOID URINE SCREEN NEGATIVE (NEGATIVE); PHENCYCLIDINE URINE SCREEN NEGATIVE (NEGATIVE)
[2019-07-05 20:06] LABS: NUCLEATED RED BLOOD CELLS 6 /100 WBC; PLATELET ESTIMATE NORMAL
[2019-07-05] MEDS: CLONIDINE 0.1MG TABLET PO PRN (22:00)
[2019-07-06] MEDS ORDERED: MAGNESIUM/ALUMINUM HYDROXIDE/SIMETHICONE 30ML UDC PO PRN
[2019-07-06] MEDS ORDERED: HYDROCODONE/ACETAMINOPHEN 5/325MG TABLET PO PRN
[2019-07-06] MEDS ORDERED: ACETAMINOPHEN 325MG TABLET PO PRN
[2019-07-06] MEDS ORDERED: DOCUSATE SODIUM 100MG CAPSULE PO PRN
[2019-07-06] MEDS ORDERED: CLONIDINE 0.1MG TABLET PO PRN
[2019-07-06] MEDS ORDERED: NITROGLYCERIN OINT 1GM/INCH UDPKT TD SCH (00:15)
[2019-07-06] MEDS: NITROGLYCERIN OINT 1GM/INCH UDPKT TD SCH ×4 (00:24→18:44)
[2019-07-06 05:15] LABS: HEMATOCRIT. 32.5 % (42.0-52.0); HEMOGLOBIN. 10.6 g/dL (14.0-18.0); MEAN CORPUSCULAR HEMOGLOBIN 28.2 pg (28.0-32.0); MEAN CORPUSCULAR VOLUME 86.5 fL (80.0-94.0); MEAN PLATELET VOLUME 9.3 fl (7.4-10.4); PLATELET 307 x1000/uL (130-400); RED BLOOD CELL COUNT 3.75 mill/uL (4.7-6.1); RED CELL DISTRIBUTION WIDTH 17.8 % (11.6-14.6)
[2019-07-06 05:16] LABS: CHLORIDE 104 mEq/L (98-107)
[2019-07-06] MEDS: CLONIDINE 0.1MG TABLET PO PRN ×2 (05:18→16:52)
[2019-07-06 05:24] LABS: HDL CHOLESTEROL 15 mg/dL (40-59); LDL CHOLESTEROL 94 mg/dL (5-100)
[2019-07-06 05:26] LABS: CREATINE KINASE 52 IU/L (39-308); CREATINE KINASE MB FRACTION 1.8 ng/mL (0.5-3.6)
[2019-07-06 06:02] LABS: NUCLEATED RED BLOOD CELLS 3 /100 WBC; PLATELET ESTIMATE NORMAL
[2019-07-06] MEDS ORDERED: FUROSEMIDE 40MG/4ML VIAL IVP SCH (09:00)
[2019-07-06] MEDS: ASPIRIN 81MG EC TABLET PO SCH (09:10)
[2019-07-06] MEDS: AMLODIPINE 5MG TABLET PO SCH ×2 (09:10→18:25)
[2019-07-06] MEDS ORDERED: ENOXAPARIN 80MG/0.8ML SYR SUBCUT NR (15:30)
[2019-07-06 16:00] VITALS: BP 156/109
[2019-07-06 16:01] VITALS: BP 172/105
[2019-07-06 20:00] VITALS: BP 145/105
[2019-07-06] MEDS: FUROSEMIDE 40MG/4ML VIAL IVP SCH (20:21)
[2019-07-06] MEDS: LOSARTAN POTASSIUM 25 MG TABLET PO SCH (20:34)
[2019-07-06] MEDS: POTASSIUM CHLORIDE 20MEQ TABLET SR PO SCH (20:34)
[2019-07-06] MEDS: HYDRALAZINE HCL 50MG TABLET PO SCH (20:37)
[2019-07-06] MEDS: IPRATROPIUM/ALBUTEROL 0.5-3(2.5)MG/3ML NEB NEB PRN (21:53)
[2019-07-06] MEDS ORDERED: CHLORDIAZEPOXIDE 25MG CAPSULE PO SCH (22:00)
[2019-07-07] VITALS: BP 122/78
[2019-07-07] MEDS: NITROGLYCERIN OINT 1GM/INCH UDPKT TD SCH ×4 (00:13→17:40)
[2019-07-07] MEDS: IPRATROPIUM/ALBUTEROL 0.5-3(2.5)MG/3ML NEB NEB PRN (01:52)
[2019-07-07 04:00] VITALS: BP 126/81
[2019-07-07] MEDS: HYDRALAZINE HCL 50MG TABLET PO SCH ×3 (06:00→21:56)
[2019-07-07] MEDS: FUROSEMIDE 40MG/4ML VIAL IVP SCH ×2 (06:17→17:15)
[2019-07-07 07:34] LABS: CHLORIDE 101 mEq/L (98-107)
[2019-07-07 07:42] LABS: CREATINE KINASE 37 IU/L (39-308)
[2019-07-07 07:45] LABS: CREATINE KINASE MB FRACTION 1.3 ng/mL (0.5-3.6)
[2019-07-07 07:54] LABS: HEMATOCRIT. 29.6 % (42.0-52.0); HEMOGLOBIN. 9.8 g/dL (14.0-18.0); MEAN CORPUSCULAR HEMOGLOBIN 28.3 pg (28.0-32.0); MEAN CORPUSCULAR VOLUME 85.3 fL (80.0-94.0); MEAN PLATELET VOLUME 9.3 fl (7.4-10.4); PLATELET 290 x1000/uL (130-400); RED BLOOD CELL COUNT 3.47 mill/uL (4.7-6.1); RED CELL DISTRIBUTION WIDTH 17.7 % (11.6-14.6)
[2019-07-07 08:00] VITALS: BP 123/76
[2019-07-07] MEDS: AMLODIPINE 5MG TABLET PO SCH ×2 (08:57→17:00)
[2019-07-07] MEDS: LOSARTAN POTASSIUM 25 MG TABLET PO SCH ×2 (08:57→21:56)
[2019-07-07] MEDS: POTASSIUM CHLORIDE 20MEQ TABLET SR PO SCH (08:58)
[2019-07-07] MEDS: ASPIRIN 81MG EC TABLET PO SCH ×2 (08:58→09:00)
[2019-07-07 12:00] VITALS: BP 146/83
[2019-07-07 16:00] VITALS: BP 134/92
[2019-07-07 19:55] LABS: NUCLEATED RED BLOOD CELLS 3 /100 WBC; PLATELET ESTIMATE NORMAL
[2019-07-07 20:00] VITALS: BP 151/99
[2019-07-08] VITALS: BP 145/102
[2019-07-08] MEDS: NITROGLYCERIN OINT 1GM/INCH UDPKT TD SCH ×2 (00:15→05:57)
[2019-07-08 04:00] VITALS: BP 149/82
[2019-07-08] MEDS: HYDRALAZINE HCL 50MG TABLET PO SCH (05:57)
[2019-07-08] MEDS: FUROSEMIDE 40MG/4ML VIAL IVP SCH (06:22)
[2019-07-08 06:43] LABS: CHLORIDE 103 mEq/L (98-107)
[2019-07-08 06:51] LABS: HEMATOCRIT. 32.3 % (42.0-52.0); HEMOGLOBIN. 10.6 g/dL (14.0-18.0); MEAN CORPUSCULAR HEMOGLOBIN 28.1 pg (28.0-32.0); MEAN CORPUSCULAR VOLUME 85.6 fL (80.0-94.0); MEAN PLATELET VOLUME 9.1 fl (7.4-10.4); PLATELET 295 x1000/uL (130-400); RED BLOOD CELL COUNT 3.77 mill/uL (4.7-6.1); RED CELL DISTRIBUTION WIDTH 17.9 % (11.6-14.6)
[2019-07-08 10:21] LABS: NUCLEATED RED BLOOD CELLS 2 /100 WBC; PLATELET ESTIMATE NORMAL
== END 2019-07-08 07:55 | disposition left against medical advice (07) | DRG 133 ==
LOC: ER 16:06 → EDBEDREQTM 21:07 → EDBEDREQ 21:07 → EDBEDREQSVC 07-06 11:58 → ENRESERV 07-06 13:26 → 5WST 07-06 15:09
PROVIDERS: ADMIT Internal Medicine; ATTEND Internal Medicine
PROC: 5A09357 Assistance with Respiratory Ventilation, Less than 24 Consecutive Hours, Continuous Positive Airway Pressure (ICD-10-PCS; principal; 2019-07-05)
DX: J96.00 Acute respiratory failure, unspecified whether with hypoxia or hypercapnia (principal); I50.23 Acute on chronic systolic (congestive) heart failure; I27.20 Pulmonary hypertension, unspecified; R18.8 Other ascites; F10.20 Alcohol dependence, uncomplicated; D50.9 Iron deficiency anemia, unspecified; B19.20 Unspecified viral hepatitis C without hepatic coma; D63.8 Anemia in other chronic diseases classified elsewhere; I13.0 Hypertensive heart and chronic kidney disease with heart failure and stage 1 through stage 4 chronic kidney disease, or unspecified chronic kidney disease; I16.0 Hypertensive urgency; I45.10 Unspecified right bundle-branch block; K80.20 Calculus of gallbladder without cholecystitis without obstruction; E87.6 Hypokalemia; N18.9 Chronic kidney disease, unspecified; Z87.891 Personal history of nicotine dependence; Z79.899 Other long term (current) drug therapy
CPT/HCPCS: 36415; 36600; 71045; 76700; 78580; 80048; 80053; 80061; 80305; 82375; 82550; 82553; 82805; 83735; 83880; 84443; 84484; 85025; 85379; 93005; 93970; 94640; 94660; 96372; 96374; 99291; C1893; J0360; J1650; J1940

== ENCOUNTER 2019-07-17 06:20 | Inpatient (IN) | payer MEDICAID ==
[~2019-07-17] VITALS: Ht 177.8 cm; Wt 81.6 kg
[2019-07-17] MEDS ORDERED: IPRATROPIUM BROMIDE (0.02%) 0.5MG/2.5ML NEB HHN STA (06:35)
[2019-07-17] MEDS ORDERED: PREDNISONE 20MG TABLET PO STA (06:35)
[2019-07-17] MEDS ORDERED: ALBUTEROL (0.083%) 2.5MG/3ML NEB HHN STA (06:35)
[2019-07-17] MEDS ORDERED: FUROSEMIDE 40MG/4ML VIAL IVP ONE (08:00)
[2019-07-17] MEDS ORDERED: ENALAPRIL 2.5MG/2ML VIAL 2ML IV ONE (08:00)
[2019-07-17 08:50] LABS: BG BASE EXCESS -3.4 mmol/L (-2.0-2.0); BG CARBOXYHEMOGLOBIN 0.7 % (0.5-1.5); BG DEOXYHEMOGLOBIN 0.7 % (0.0-5.0); BG FRACTION INSPIRED OXYGEN 45; BG HCO3 ACT 18.1 mmol/L (22.0-26.0); BG METHEMOGLOBIN 0.3 % (0.0-1.5); BG OXYGEN SATURATION 99.3 % (92.0-98.5); BG OXYHEMOGLOBIN 98.3 % (94.0-97.0); BG PCO2 23.6 mmHg (35.0-45.0); BG PH 7.502 (7.350-7.450); BG PO2 183.9 mmHg (75.0-100.0); BG SAMPLE SITE RIGHT BRACHIAL; BG TOTAL HEMOGLOBIN 12.4 g/dL (12.0-18.0)
[2019-07-17 09:38] LABS: BASOPHILS % 1.3 % (0.0-2.0); EOSINOPHILS % 0.6 % (0.0-5.0); HEMATOCRIT. 37.1 % (42.0-52.0); HEMOGLOBIN. 11.9 g/dL (14.0-18.0); LYMPHOCYTES % 31.3 % (20.0-50.0); MEAN CORPUSCULAR VOLUME 84.5 fL (80.0-94.0); MEAN PLATELET VOLUME 9.2 fl (7.4-10.4); MONOCYTES % 11.5 % (2.0-8.0); NEUTROPHILS % 55.3 % (40.0-76.0); PLATELET 230 x1000/uL (130-400); RED BLOOD CELL COUNT 4.39 mill/uL (4.7-6.1); RED CELL DISTRIBUTION WIDTH 18.1 % (11.6-14.6)
[2019-07-17 09:49] LABS: CHLORIDE 104 mEq/L (98-107)
[2019-07-17] MEDS ORDERED: ONDANSETRON HCL 4MG/2ML INJ IV PRN (10:45)
[2019-07-17] MEDS ORDERED: ACETAMINOPHEN 325MG TABLET PO PRN (10:45)
[2019-07-17] MEDS ORDERED: IPRATROPIUM/ALBUTEROL 0.5-3(2.5)MG/3ML NEB HHN PRN (10:45)
[2019-07-17] MEDS: ENOXAPARIN 40MG/0.4ML SYR SUBCUT SCH (11:41)
[2019-07-17 12:10] LABS: PHOSPHORUS 3.3 mg/dL (2.5-4.9)
[2019-07-17 16:00] VITALS: BP 170/113
[2019-07-17] MEDS ORDERED: PNEUMOCOCCAL 23-VAL P-SAC VAC 0.5 ML IM ONE (18:30)
[2019-07-17] MEDS ORDERED: INFLUENZA VIRUS VACCINE(AFLURIA) 0.5ML SYR IM ONE (18:30)
[2019-07-17] MEDS: AMLODIPINE 5MG TABLET PO SCH (18:43)
[2019-07-17] MEDS: FUROSEMIDE 40MG/4ML VIAL IV SCH (18:44)
[2019-07-17 20:00] VITALS: BP 166/119
[2019-07-17] MEDS ORDERED: DEXTROSE 50% WATER 50ML SYRINGE IV PRN (20:15)
[2019-07-17] MEDS: INSULIN LISPRO 100 UNITS/ML SUBCUT SCH (21:00)
[2019-07-17] MEDS: BLOOD SUGAR DIAGNOSTIC STRIP TEST SCH (21:12)
[2019-07-17 22:51] LABS: *AMPHETAMINES SCREEN URINE NEGATIVE (NEGATIVE)
[2019-07-17 22:52] LABS: *BARBITURATES SCREEN URINE NEGATIVE (NEGATIVE); *BENZODIAZEPINES SCREEN URINE NEGATIVE (NEGATIVE); *COCAINE SCREEN URINE NEGATIVE (NEGATIVE); CANNABINOID URINE SCREEN NEGATIVE (NEGATIVE); METHADONE URINE SCREEN NEGATIVE (NEGATIVE); OPIATES URINE SCREEN NEGATIVE (NEGATIVE); PHENCYCLIDINE URINE SCREEN NEGATIVE (NEGATIVE)
[2019-07-18] VITALS: BP 158/106
[2019-07-18] MEDS: AMLODIPINE 5MG TABLET PO SCH ×2 (00:37→09:11)
[2019-07-18 04:00] VITALS: BP 167/107
[2019-07-18] MEDS ORDERED: CLONIDINE 0.1MG TABLET PO PRN (05:45)
[2019-07-18 07:15] LABS: HEMATOCRIT. 35.4 % (42.0-52.0); HEMOGLOBIN. 11.3 g/dL (14.0-18.0); MEAN CORPUSCULAR HEMOGLOBIN 26.9 pg (28.0-32.0); MEAN CORPUSCULAR VOLUME 84.6 fL (80.0-94.0); MEAN PLATELET VOLUME 9.2 fl (7.4-10.4); PLATELET 238 x1000/uL (130-400); RED BLOOD CELL COUNT 4.19 mill/uL (4.7-6.1); RED CELL DISTRIBUTION WIDTH 18.2 % (11.6-14.6)
[2019-07-18 07:28] LABS: CHLORIDE 107 mEq/L (98-107)
[2019-07-18 08:00] VITALS: BP 140/92
[2019-07-18] MEDS: BLOOD SUGAR DIAGNOSTIC STRIP TEST SCH ×2 (08:10→12:58)
[2019-07-18] MEDS: INSULIN LISPRO 100 UNITS/ML SUBCUT SCH ×2 (08:10→12:58)
[2019-07-18] MEDS ORDERED: ASPIRIN 81MG EC TABLET PO SCH (09:00)
[2019-07-18] MEDS: FUROSEMIDE 40MG/4ML VIAL IV SCH ×2 (09:11→09:36)
[2019-07-18] MEDS: ENOXAPARIN 40MG/0.4ML SYR SUBCUT SCH (09:11)
[2019-07-18 12:00] VITALS: BP 134/86
[2019-07-18] MEDS ORDERED: CLONIDINE 0.1MG TABLET PO SCH (14:00)
[2019-07-18 14:15] LABS: NUCLEATED RED BLOOD CELLS 1 /100 WBC; PLATELET ESTIMATE NORMAL
== END 2019-07-18 15:20 | disposition left against medical advice (07) | DRG 133 ==
LOC: ER 06:20 → 7WST 10:28 → EDBEDREQ 10:31 → EDBEDREQTM 10:31 → ENRESERV 15:29
PROVIDERS: ADMIT Internal Medicine; ATTEND Internal Medicine
DX: J96.00 Acute respiratory failure, unspecified whether with hypoxia or hypercapnia (principal); I50.23 Acute on chronic systolic (congestive) heart failure; I27.20 Pulmonary hypertension, unspecified; I42.0 Dilated cardiomyopathy; R18.8 Other ascites; J44.1 Chronic obstructive pulmonary disease with (acute) exacerbation; I13.0 Hypertensive heart and chronic kidney disease with heart failure and stage 1 through stage 4 chronic kidney disease, or unspecified chronic kidney disease; B19.20 Unspecified viral hepatitis C without hepatic coma; D64.9 Anemia, unspecified; I16.0 Hypertensive urgency; F10.20 Alcohol dependence, uncomplicated; F17.210 Nicotine dependence, cigarettes, uncomplicated; I45.10 Unspecified right bundle-branch block; I50.82 Biventricular heart failure; K80.20 Calculus of gallbladder without cholecystitis without obstruction; N18.9 Chronic kidney disease, unspecified; R74.0 Nonspecific elevation of levels of transaminase and lactic acid dehydrogenase [LDH]; Z91.14 Patient's other noncompliance with medication regimen; Z82.49 Family history of ischemic heart disease and other diseases of the circulatory system; Z82.3 Family history of stroke; Z79.82 Long term (current) use of aspirin; Z59.0 Homelessness; Z79.899 Other long term (current) drug therapy
CPT/HCPCS: 36415; 36600; 71045; 80053; 80305; 82375; 82805; 82962; 83735; 83880; 84100; 84484; 85025; 87804; 93005; 93970; 94644; 99285; J1650; J1940; J3490; J7512

== ENCOUNTER 2019-07-24 09:12 | Inpatient (IN) | payer MEDICAID ==
[~2019-07-24] VITALS: Ht 177.8 cm; Wt 81.6 kg
[2019-07-24 11:24] LABS: BG BASE EXCESS -4.9 mmol/L (-2.0-2.0); BG CARBOXYHEMOGLOBIN 0.4 % (0.5-1.5); BG DEOXYHEMOGLOBIN 1.4 % (0.0-5.0); BG FRACTION INSPIRED OXYGEN 100; BG HCO3 ACT 19.2 mmol/L (22.0-26.0); BG METHEMOGLOBIN 0.3 % (0.0-1.5); BG OXYGEN SATURATION 98.6 % (92.0-98.5); BG OXYHEMOGLOBIN 97.9 % (94.0-97.0); BG PCO2 32.4 mmHg (35.0-45.0); BG PO2 134.2 mmHg (75.0-100.0); BG SAMPLE SITE RIGHT BRACHIAL; BG TOTAL HEMOGLOBIN 12.3 g/dL (12.0-18.0); BG VENT MODE MASK - NRB
[2019-07-24 11:36] LABS: BASOPHILS % 1.8 % (0.0-2.0); EOSINOPHILS % 1.2 % (0.0-5.0); MEAN CORPUSCULAR HEMOGLOBIN 27.3 pg (28.0-32.0); MEAN CORPUSCULAR VOLUME 84.1 fL (80.0-94.0); MEAN PLATELET VOLUME 9.1 fl (7.4-10.4); MONOCYTES % 12.7 % (2.0-8.0); NEUTROPHILS % 53.3 % (40.0-76.0); PLATELET 414 x1000/uL (130-400); RED CELL DISTRIBUTION WIDTH 18.5 % (11.6-14.6)
[2019-07-24] MEDS ORDERED: FUROSEMIDE 40MG/4ML VIAL IVP ONE (12:00)
[2019-07-24] MEDS ORDERED: ENALAPRIL 1.25MG/ML VIAL 1ML IV ONE (12:00)
[2019-07-24] MEDS ORDERED: ENALAPRIL 2.5MG/2ML VIAL 2ML IV ONE (12:00)
[2019-07-24] MEDS ORDERED: CLONIDINE 0.1MG TABLET PO PRN ×2 (12:15→13:30)
[2019-07-24] MEDS ORDERED: ACETAMINOPHEN 325MG TABLET PO PRN (12:15)
[2019-07-24] MEDS ORDERED: LABETALOL 5MG/ML SYR 20 MG/4 ML SYRINGE IV ONE (12:15)
[2019-07-24] MEDS ORDERED: ONDANSETRON HCL 4MG/2ML INJ IV PRN (12:15)
[2019-07-24] MEDS ORDERED: LOSARTAN POTASSIUM 100 MG TABLET PO SCH (12:15)
[2019-07-24 13:09] LABS: CHLORIDE 106 mEq/L (98-107)
[2019-07-24] MEDS: CLONIDINE 0.1MG TABLET PO SCH (13:30)
[2019-07-24] MEDS ORDERED: LOSARTAN POTASSIUM 100 MG TABLET PO NR (15:15)
[2019-07-24] MEDS ORDERED: AMLODIPINE 5MG TABLET PO NR (15:15)
[2019-07-24] MEDS ORDERED: FUROSEMIDE 40MG/4ML VIAL IVP NR (15:15)
[2019-07-24] MEDS ORDERED: CARVEDILOL 12.5MG TABLET PO SCH ×2 (21:00)
[2019-07-25] VITALS (11 sets, daily range): BP systolic 110–157; BP diastolic 66–125
[2019-07-25] MEDS: CLONIDINE 0.1MG TABLET PO SCH ×4 (02:25→20:40)
[2019-07-25 06:54] LABS: HEMATOCRIT. 34.6 % (42.0-52.0); MEAN CORPUSCULAR HEMOGLOBIN 26.8 pg (28.0-32.0); MEAN CORPUSCULAR VOLUME 83.9 fL (80.0-94.0); PLATELET 401 x1000/uL (130-400); RED BLOOD CELL COUNT 4.13 mill/uL (4.7-6.1)
[2019-07-25] MEDS ORDERED: PNEUMOCOCCAL 23-VAL P-SAC VAC 0.5 ML IM ONE (08:00)
[2019-07-25] MEDS: FUROSEMIDE 40MG/4ML VIAL IVP SCH ×2 (08:50→17:29)
[2019-07-25] MEDS: CARVEDILOL 12.5MG TABLET PO SCH ×2 (08:51→20:39)
[2019-07-25] MEDS: LOSARTAN POTASSIUM 100 MG TABLET PO SCH (08:51)
[2019-07-25] MEDS: AMLODIPINE 5MG TABLET PO SCH (08:51)
[2019-07-25] MEDS: ENOXAPARIN 40MG/0.4ML SYR SUBCUT SCH (08:53)
[2019-07-25] MEDS ORDERED: INFLUENZA VIRUS VACCINE(AFLURIA) 0.5ML SYR IM ONE (10:00)
[2019-07-25 14:34] LABS: NUCLEATED RED BLOOD CELLS 1 /100 WBC; PLATELET ESTIMATE SLIGHTLY INCREASED
[2019-07-25] MEDS: THIAMINE HCL 100MG TABLET PO SCH (17:29)
[2019-07-25] MEDS: FOLIC ACID/VITAMIN B COMP W-C TABLET PO SCH (17:29)
[2019-07-25] MEDS: MULTIVITAMINS,THER W-MINERALS TABLET PO SCH (17:29)
[2019-07-25 19:40] LABS: *AMPHETAMINES SCREEN URINE NEGATIVE (NEGATIVE)
[2019-07-25 19:41] LABS: *BARBITURATES SCREEN URINE NEGATIVE (NEGATIVE); *BENZODIAZEPINES SCREEN URINE NEGATIVE (NEGATIVE); *COCAINE SCREEN URINE NEGATIVE (NEGATIVE); METHADONE URINE SCREEN NEGATIVE (NEGATIVE); OPIATES URINE SCREEN NEGATIVE (NEGATIVE); PHENCYCLIDINE URINE SCREEN NEGATIVE (NEGATIVE)
[2019-07-25 19:42] LABS: CANNABINOID URINE SCREEN NEGATIVE (NEGATIVE)
[2019-07-25] MEDS: BUDESONIDE 0.5MG/2ML NEB HHN SCH (21:35)
[2019-07-25] MEDS: IPRATROPIUM/ALBUTEROL 0.5-3(2.5)MG/3ML NEB HHN SCH (21:35)
[2019-07-26] VITALS (12 sets, daily range): BP systolic 106–138; BP diastolic 59–89
[2019-07-26] MEDS: IPRATROPIUM/ALBUTEROL 0.5-3(2.5)MG/3ML NEB HHN SCH ×5 (03:50→20:30)
[2019-07-26] MEDS: CLONIDINE 0.1MG TABLET PO SCH ×4 (04:12→20:32)
[2019-07-26] MEDS: BUDESONIDE 0.5MG/2ML NEB HHN SCH ×2 (07:44→20:30)
[2019-07-26] MEDS: FUROSEMIDE 40MG/4ML VIAL IVP SCH ×2 (08:17→18:38)
[2019-07-26] MEDS: THIAMINE HCL 100MG TABLET PO SCH (08:17)
[2019-07-26] MEDS: MULTIVITAMINS,THER W-MINERALS TABLET PO SCH (08:17)
[2019-07-26] MEDS: FOLIC ACID/VITAMIN B COMP W-C TABLET PO SCH (08:18)
[2019-07-26] MEDS: AMLODIPINE 5MG TABLET PO SCH (08:18)
[2019-07-26] MEDS: CARVEDILOL 12.5MG TABLET PO SCH ×2 (08:18→20:32)
[2019-07-26] MEDS: LOSARTAN POTASSIUM 100 MG TABLET PO SCH (08:18)
[2019-07-26] MEDS: ENOXAPARIN 40MG/0.4ML SYR SUBCUT SCH (08:19)
[2019-07-26] MEDS ORDERED: LACTULOSE 20G/30ML UDC PO PRN (14:30)
[2019-07-27] MEDS: CLONIDINE 0.1MG TABLET PO SCH (01:30)
[2019-07-27 02:00] VITALS: BP 105/76
[2019-07-27] MEDS: IPRATROPIUM/ALBUTEROL 0.5-3(2.5)MG/3ML NEB HHN SCH ×2 (02:16→09:20)
[2019-07-27 04:00] VITALS: BP 113/72
[2019-07-27 06:00] VITALS: BP 108/71
[2019-07-27 07:11] LABS: HEMOGLOBIN. 10.8 g/dL (14.0-18.0); MEAN CORPUSCULAR HEMOGLOBIN 26.5 pg (28.0-32.0); MEAN CORPUSCULAR VOLUME 83.2 fL (80.0-94.0); MEAN PLATELET VOLUME 8.8 fl (7.4-10.4); PLATELET 451 x1000/uL (130-400); RED BLOOD CELL COUNT 4.09 mill/uL (4.7-6.1); RED CELL DISTRIBUTION WIDTH 17.8 % (11.6-14.6)
[2019-07-27 08:00] VITALS: BP 113/71
[2019-07-27] MEDS: BUDESONIDE 0.5MG/2ML NEB HHN SCH (09:20)
[2019-07-27 10:00] VITALS: BP 104/73
[2019-07-27 11:04] VITALS: BP 104/73
[2019-07-27 13:27] LABS: PLATELET ESTIMATE INCREASED
== END 2019-07-27 15:01 | disposition home or self-care (01) | DRG 140 ==
LOC: ER 09:23 → 5EST 11:50 → ENRESERV 22:40 → UNDOADMIN 23:50 → 5EST 23:50
PROVIDERS: ADMIT Internal Medicine; ATTEND Internal Medicine
PROC: 5A09357 Assistance with Respiratory Ventilation, Less than 24 Consecutive Hours, Continuous Positive Airway Pressure (ICD-10-PCS; principal; 2019-07-24)
DX: J44.1 Chronic obstructive pulmonary disease with (acute) exacerbation (principal); J96.01 Acute respiratory failure with hypoxia; I50.43 Acute on chronic combined systolic (congestive) and diastolic (congestive) heart failure; I27.20 Pulmonary hypertension, unspecified; E72.20 Disorder of urea cycle metabolism, unspecified; E44.1 Mild protein-calorie malnutrition; I42.9 Cardiomyopathy, unspecified; I11.0 Hypertensive heart disease with heart failure; B19.20 Unspecified viral hepatitis C without hepatic coma; D64.9 Anemia, unspecified; E11.9 Type 2 diabetes mellitus without complications; F10.20 Alcohol dependence, uncomplicated; I16.0 Hypertensive urgency; Z60.2 Problems related to living alone; I45.10 Unspecified right bundle-branch block; K70.9 Alcoholic liver disease, unspecified; Z87.891 Personal history of nicotine dependence; Z79.899 Other long term (current) drug therapy
CPT/HCPCS: 36415; 36600; 71045; 80048; 80053; 80305; 82140; 82375; 82693; 82805; 83735; 83880; 84484; 85025; 90686; 90732; 93005; 94640; 94660; 99291; J1650; J1940; J3490; J7626